=== PATIENT | male | born 1965 | race Caucasian/White ===

== ENCOUNTER 2019-06-26 18:14 | Emergency (ER) | payer OTHER ==
[~2019-06-26] VITALS: Ht 172.7 cm; Wt 93.1 kg
--- NOTE | 2019-06-26 18:21 | PHYS DOC ---
Past History Past Medical History: Other Past Surgical History: Other Alcohol Use: None Drug Use: None Adult General Chief Complaint Chief Complaint: ".. I had a cavity for a while.. here [place] [address] I been putting off going to dentist.. 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 Pain is localized to teeth 29 and 28. No pointing abscesses. No trismus. Has obvious cavity. No adenopathy. Patient denies any history of immunosuppression. No recent [place] outside the country or travel outside [facility] last couple months. Patient has been calls to get in to a dentist office. Pt. follows at [place]. Review of Systems Review of Systems Constitutional: Denies fever or chills [] Eyes: Denies change in visual acuity, redness, or eye pain [] HENT: Denies nasal congestion or sore throat . The[]patient complaints of severe dental pain Respiratory: Denies cough or shortness of breath [] Cardiovascular: No additional information not addressed in HPI [] GI: Denies abdominal pain, nausea, vomiting, bloody stools or diarrhea [] : Denies dysuria or hematuria [] Musculoskeletal: Denies back pain or joint pain [] Integument: Denies rash or skin lesions [] Neurologic: Denies headache, focal weakness or sensory changes [] Endocrine: Denies polyuria or polydipsia [] All other systems were reviewed and found to be within normal limits, except as documented in this note. Family History Family History Noncontributory Current Medications Current Medications See nursing for home meds Allergies Allergies Allergies Coded Allergies Type Severity Reaction Last Updated Verified No Known Drug Allergies 01/29/14 No Physical Exam Physical Exam Constitutional: Well developed, well nourished, reports severe acute distress, non-toxic appearance. [] HENT: Normocephalic, atraumatic, bilateral external ears normal, oropharynx moist, no oral exudates, nose normal. []Complaints of dental pain in teeth 28 and 29 Eyes: PERRLA, EOMI, conjunctiva normal, no discharge. [] Neck: Normal range of motion, no tenderness, supple, no stridor. [] Cardiovascular:Heart rate regular rhythm, no murmur [] Lungs & Thorax: Bilateral breath sounds equal apex auscultation [] Abdomen: Bowel sounds normal, soft, no tenderness, no masses, no pulsatile masses. [] Skin: Warm, dry, no erythema, no rash. [] Back: No tenderness, no CVA tenderness. [] Extremities: No tenderness, no cyanosis, no clubbing, ROM intact, no edema. [] Neurologic: Alert and oriented X 3, normal motor function, normal sensory function, no focal deficits noted. [] Psychologic: Affect anxious, judgement normal, mood normal. [] EKG EKG [] Radiology/Procedures Radiology/Procedures [] Course & Med Decision Making Course & Med Decision Making Pertinent Labs and Imaging studies reviewed. (See chart for details) Patient take Tylenol and ibuprofen for pain. For marked pain may take Vicoprofen. Patient take Keflex 500 mg 3 times a day. Patient must follow-up with dentist. Occluding the cavity site may be helpful to relieve pain. Sometimes topical liquid Benadryl or topical liquid ibuprofen can help with pain relief.. Last follow-up. Impression- 1. Dental pain/dental cavities [] Dragon Disclaimer Dragon Disclaimer This electronic medical record was generated, in whole or in part, using a voice recognition dictation system. Departure Departure: Disposition: 01 HOME/RESIDENCE PRIOR TO ADM Condition: STABLE Referrals: PAT NASCIMENTO (PCP) Scripts Cephalexin (KEFLEX) 500 Mg Capsule 500 MG PO TID for dental pain, possible abscess for 10 Days, BOTTLE Prov: HANNAH DELAROSA MD 06/26/19 Hydrocodone/Ibuprofen (HYDROCODONE-IBUPROFEN 7.5-200 ) 1 Each Tablet 1 TAB PO PRN Q6HRS PRN for PAIN, #1 TAB 0 Refills Prov: HANNAH DELAROSA MD 06/26/19 Dragon Disclaimer This chart was dictated in whole or in part using Voice Recognition software in a busy, high-work load, and often noisy Emergency Department environment. It may contain unintended and wholly unrecognized errors or omissions. Dragon Disclaimer This chart was dictated in whole or in part using Voice Recognition software in a busy, high-work load, and often noisy Emergency Department environment. It may contain unintended and wholly unrecognized errors or omissions. HANNAH DELAROSA MD Jun 26, 2019 18:21
[2019-06-26 18:30] VITALS: BP 130/79
[2019-06-26] MEDS ORDERED: CEPHALEXIN 250 MG CAPSULE PO ONE (18:45)
[2019-06-26] MEDS ORDERED: KETOROLAC 60 MG/2 ML VIAL. IM ONE ×2 (18:45→19:07)
[2019-06-26] MEDS ORDERED: CEPH-264 PO (18:46)
[2019-06-26] MEDS ORDERED: HYDR-1179 PO (18:46)
== END 2019-06-26 19:29 | disposition home or self-care (01) ==
LOC: ER 18:14
DX: K02.9 Dental caries, unspecified (principal)
CPT/HCPCS: 96372; 99283; J1885